=== PATIENT | female | born 1955 | race African-American/Black ===

== ENCOUNTER 2019-05-27 11:50 | Emergency (ER) | payer OTHER ==
[~2019-05-27] VITALS: Ht 170.2 cm; Wt 93.0 kg
[2019-05-27 12:57] VITALS: BP 155/76
== END 2019-05-27 13:04 | disposition home or self-care (01) ==
LOC: ER 12:03
DX: R42 Dizziness and giddiness (principal); F41.9 Anxiety disorder, unspecified; I10 Essential (primary) hypertension
CPT/HCPCS: 93005

== ENCOUNTER 2025-07-17 09:00 | Emergency (ER) | payer OTHER ==
[~2025-07-17] VITALS: Ht 167.6 cm; Wt 119.1 kg
[2025-07-17 10:00] LABS: Hematocrit 33.2 % (36.0-46.0); Hemoglobin 11.3 g/dL (12.2-16.2); Mean Corpuscular Hemoglobin 33.1 pg (28.0-32.0); Mean Corpuscular Volume 97.8 fL (80.0-100.0); Nucleated Red Blood Cells % 0.2 %
--- NOTE | 2025-07-17 10:00 | DVH ---
EXAM: CT HEAD WITHOUT CONTRAST INDICATION: HEAD PAIN TECHNIQUE: CT of the head without intravenous contrast. Radiation Dose : 1. Head: CT Dose: CTDI volume is 55.4 mGy. Dose-length product is 1091.72 mGy*cm The dose indicators for CT are the volume Computed Tomography (CT) Dose Index (CTDIvol) and the Dose Length Product (DLP), and are measured in units of mGy and mGy-cm, respectively. These indicators are not patient dose, but values generated from the CT scanner acquisition factors. The report includes radiation exposure data for exposures received during this examination. COMPARISON: None FINDINGS: There is no evidence of acute intracranial hemorrhage, extra-axial collection, mass effect, midline s hift, herniation or hydrocephalus. The ventricles, sulci and cisterns are age appropriate. Hypoattenuation in the right posterior temporal lobe /parietal lobe. Patchy periventricular and subcortical white matter hypoattenuation is nonspecific but may be related to small vessel ischemic disease. The visualized paranasal sinuses and mastoid air cells are clear. The surrounding soft tissues and osseous structures are unremarkable. IMPRESSION: Hypoattenuation in the posterior right temporal lobe / parietal lobe. This may represent a subacute i nfarct. Clinical correlation advised. MRI can be obtained to further evaluate if clinically indicat ed. Critical Result: Stroke Alert Findings discussed with Dr. Murillo, at 07/17/2025 09:57 AM, and acknowledged receipt and understandin g of the findings.
[2025-07-17 10:03] LABS: Potassium 4.4 mmol/L (3.5-5.1); Sodium 141 mmol/L (136-145)
[2025-07-17 10:04] LABS: Anion Gap 9 (5-15); Calcium 8.9 mg/dL (8.7-10.4); Carbon Dioxide 24 mmol/L (20-31)
[2025-07-17 10:09] LABS: BUN/Creatinine Ratio 12.9 (10.0-20.0); Blood Urea Nitrogen 15 mg/dL (9-23)
[2025-07-17 10:16] LABS: Chloride 108 mmol/L (98-107); Glucose 142 mg/dL (74-106)
--- NOTE | 2025-07-17 11:10 | ED.PDOC ---
History of Present Illness HPI Comments 70-YEAR-OLD FEMALE PRESENTS TO THE ER WITH SPOUSE AND PRIOR MEDICAL HISTORY OF HYPERTENSION AND THE CHIEF COMPLAINT OF HEADACHE. PATIENT REPORTS ON BEING ON THE PHONE LAST NIGHT AT 9:00 P.M., AND WHEN THE PATIENT GOT UP FROM SITTING DOWN, THE PATIENT'S LEFT EYE VISION TURNED BLACK AND THE RIGHT EYE HAD BLUR RINESS. STATED ON TRYING TO SLEEP IT OFF WHEN SHE WOKE UP THIS MORNING WITH HORRENDOUS HEADACHE . 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 Family History Family History: Reviewed,noncontributory to illness, Unknown Social History Smoker: Non-Smoker Alcohol: Denies ETOH Use Drugs: Denies Drug Use Lives In: Home Constitutional: denies: chills, diaphoresis, fatigue, fever, malaise, sweats, weakness, others EENTM: reports: blurred vision; denies: double vision, ear bleeding, ear discharge, ear drainage, ear pain, ear ringing, eye pain, eye redness, hearing loss, mouth pain, mouth swelling, nasal discharge, nose bleeding, nose congestion, nose pain, photophobia, tearing, throat pain, throat swelling, voice changes, others Respiratory: denies: cough, hemoptysis, orthopnea, SOB at rest, shortness of breath, SOB with excertion, stridor, wheezing, others Cardiovascular: denies: chest pain, dizzy spells, diaphoresis, Dyspnea on exertion, edema, irregular heart beat, left arm pain, lightheadedness, palpitations, PND, syncope, others Gastrointestinal: denies: abdomen distended, abdominal pain, blood streaked bowels, constipated, diarrhea, dysphagia, difficulty swallowing, hematemesis, melena, nausea, poor appetite, poor fluid intake, rectal bleeding, rectal pain, vomiting, others Genitourinary: denies: abnormal vagina bleeding, burning, dyspareunia, dysuria, flank pain, frequency, hematuria, incontinence, pain, , vagina discharge, urgency, others Neurological: reports: headache; denies: dizziness, fainting, left sided numbness, left sided weakness, numbness, paresthesia, pre-existing deficit, right sided numbness, right sided weakness, seizure, speech problems, tingling, tremors, weakness, others Musculoskeletal: denies: back pain, gout, joint pain, joint swelling, muscle pain, muscle stiffness, neck pain, others Integumetry: denies: bruises, change in color, change in hair/nails, dryness, laceration, lesions, lumps, rash, wounds, others Allergic/Immunocompromised: denies: Difficulty Healing, Frequent Infections, Hives, Itching, others Hematologic/Lymphatic: denies: anemia, blood clots, easy bleeding, easy bruising, swollen glands, others Endocrine: denies: excessive hunger, excessive sweating, excessive thirst, excessive urination, flushing, intolerance to cold, intolerance to heat, unexplained weight gain, unexplained weight loss, others Psychiatric: denies: anxiety, bipolar disorder, depression, hopeless, panic disorder, schizophrenia, sleepless, suicidal, others All Other Systems: Reviewed and Negative Physical Exam General Appearance: No Apparent Distress, Normal HEENT: Normal ENT Inspection, Pharynx Normal, TMs Normal Neck: Full Range of Motion, Non-Tender, Normal, Normal Inspection Respiratory: Chest Non-Tender, Lungs Clear, No Accessory Muscle Use, No Respiratory Distress, Normal Breath Sounds Cardiovascular: No Edema, No JVD, No Murmur, No Gallop, Normal Peripheral Pulses, Regular Rate/Rhythm Breast Exam: Deferred Gastrointestinal: No Organomegaly, Non Tender, No Pulsatile Mass, Normal Bowel Sounds, Soft Genitalia: Deferred Pelvic: Deferred Rectal: Deferred Extremities: No calf tenderness, Normal capillary refill, Normal inspection, Normal range of motion, Non-tender, No pedal edema Musculoskeletal : Apperance: Normal Neurologic: Alert, filling operator II-XII nml as Tested, No Motor Deficits, Normal Affect, Normal Mood, No Sensory Deficits Cerebellar Function: Normal Reflexes: Normal Skin: Dry, Normal Color, Warm Lymphatic: No Adenopathy Was a procedure done? Was a procedure done?: No Differential Dx Considerations may include: cva, migraine X-Ray, Labs, Meds, VS Vital Signs Date Time Temp Pulse Resp B/P (MAP) Pulse Ox O2 Delivery O2 Flow Rate FiO2 9/23/25 12:43 74 19 96 Room Air* 0 21 07/17/25 12:29 71 19 96 Room Air 07/17/25 12:29 98.0 71 79 139/71 (93) 96 98.0 07/17/25 09:02 99.1 77 18 110/53 97 99.1 Lab Test 07/17/25 13:01 07/17/25 10:36 07/17/25 09:43 Range/Units Troponin I High Sensitivity Pending 10 10 </=34 ng/L White Blood Count 4.2 L 4.4-10.8 10^3/uL Red Blood Count 3.40 L 4.0-5.20 10^6/uL Hemoglobin 11.3 L 12.2-16.2 g/dL Hematocrit 33.2 L 36.0-46.0 % Mean Corpuscular Volume 97.8 80.0-100.0 fL Mean Corpuscular Hemoglobin 33.1 H 28.0-32.0 pg Mean Corpuscular Hemoglobin Concent 33.9 32.0-36.0 g/dL Red Cell Distribution Width 14.3 11.8-14.3 % Platelet Count 194 140-450 10^3/uL Mean Platelet Volume 8.8 6.9-10.8 fL Neutrophils (%) (Auto) 47.9 37.0-80.0 % Lymphocytes (%) (Auto) 29.7 10.0-50.0 % Monocytes (%) (Auto) 13.9 H 0.0-12.0 % Eosinophils (%) (Auto) 8.1 H 0.0-7.0 % Basophils (%) (Auto) 0.4 0.0-2.0 % Neutrophils # (Auto) 2.0 1.6-8.6 10 ^3/uL Lymphocytes # (Auto) 1.2 0.4-5.4 10 ^3/uL Monocytes # (Auto) 0.6 0-1.3 10 ^3/uL Eosinophils # (Auto) 0.3 0-0.8 10 ^3/uL Basophils # (Auto) 0 0-0.2 10 ^3/uL Nucleated Red Blood Cells 0.2 % Sodium Level 141 136-145 mmol/L Potassium Level 4.4 3.5-5.1 mmol/L Chloride Level 108 H 98-107 mmol/L Carbon Dioxide Level 24 20-31 mmol/L Anion Gap 9 5-15 Blood Urea Nitrogen 15 9-23 mg/dL Creatinine 1.16 H 0.550-1.02 mg/dL Glomerular Filtration Rate Calc 50 >90 mL/min BUN/Creatinine Ratio 12.9 10.0-20.0 Serum Glucose 142 H 74-106 mg/dL Calcium Level 8.9 8.7-10.4 mg/dL Current Medications Medications (Trade) Dose Ordered Sig/Layr Route Start Time Stop Time Status Last Admin Acetaminophen (Tylenol Tablet) 650 mg ONCE ONCE PO 07/17/25 11:30 07/17/25 11:36 DC 07/17/25 12:10 Aspirin 324 mg ONCE ONCE PO 07/17/25 11:30 07/17/25 11:36 DC 07/17/25 12:10 Time of 1ST Reevaluation: 11:30 Reevaluation 1ST: Unchanged Patient Education/Counseling: Diagnosis, Treatment, Prognosis Family Education/Counseling: No Family Present SEPSIS Sepsis Screen Date sepsis recognized/suspect: Jul 17, 2025 Time Sepsis recognized/suspect: 901 Recent Procedure: No On Antibiotic Therapy: No Respiratory Rate >20: No Heart Rate >90: No Temp<36 C (96.8 F) or >38.3 C: No SBP <90 or MAP <65 mmHG: No New Acute Mental Status Change: No Is the patient on CPAP, BIPAP,: No Physician Orders Head Without Contrast (07/17/25 09:09) Urinalysis (07/17/25 09:30) Troponin-I Hs (07/17/25 12:30) Electrocardigram (07/17/25 11:16) Imaging Transfer Request (07/17/25 11:36) Angio Head/Neck (07/17/25 12:50) Vital Signs Date Time Temp Pulse Resp B/P (MAP) Pulse Ox O2 Delivery O2 Flow Rate FiO2 07/17/25 12:43 74 19 96 Room Air* 0 21 07/17/25 12:29 71 19 96 Room Air 07/17/25 12:29 98.0 71 79 139/71 (93) 96 98.0 07/17/25 09:02 99.1 77 18 110/53 97 99.1 Laboratory Tests Test 07/17/25 09:43 White Blood Count 4.2 10^3/uL (4.4-10.8) L Medications Medications Dose Ordered Sig/Lary Route Start Time Stop Time Status Last Admin Dose Admin Acetaminophen 650 mg ONCE ONCE PO 07/17/25 11:30 07/17/25 11:36 DC 07/17/25 12:10 Aspirin 324 mg ONCE ONCE PO 07/17/25 11:30 07/17/25 11:36 DC 07/17/25 12:10 Departure 1 Departure Time of Disposition: 13:23 ([facility] Authorization: [id number] with a CVA.Patient being emergently transferred to [facility].) Impression: Primary Impression: CVA (cerebral vascular accident) Qualified Codes: I63.9 - Cerebral infarction, unspecified Additional Impression: Blurry vision Disposition: 02 SHORT TERM [facility]OSPITAL Condition: Critical Critical Care Note Critical Care Time?: Yes Critical care comment: CVA Authorized and Performed by: Aguila Murillo MD Total critical care time: Approximately 38 minutes Due to a high probability of clinically significant, life threatening deterioration, the patient required my highest level of preparedness to intervene emergently and I personally spent this critical care time directly and personally managing the patient. This critical care time included obtaining a history; examining the patient; pulse oximetry; ordering and review of studies; arranging urgent treatment with development of a management plan; evaluation of patient's response to treatment; frequent reassessment; and, discussions with other providers. This critical care time was performed to assess and manage the high probability of imminent, life-threatening deterioration that could result in multi-organ failure. It was exclusive of separately billable procedures and treating other patients and teaching time. Please see my other sections and the rest of the note for further information on patient assessment and treatment. Stability Stability form required: No I personally scribed for AGUILA MURILLO MD ([email or web address]) on 07/17/25 at 11:10. Electronically submitted by Vick Stephenson ([email or web address]). AGUILA MURILLO MD Jul 17, 2025 11:10
[2025-07-17] MEDS: ACETAMINOPHEN 325 MG TAB PO ONE (12:10)
[2025-07-17 12:43] VITALS: PULSE 74; RESP 19; O2SAT 96
[2025-07-17] MEDS: IOHEXOL 350 MG/ML 100ML IJ ONE (13:20)
--- NOTE | 2025-07-17 14:10 | DVH ---
EXAM: CT ANGIO HEAD/NECK DATE OF SERVICE: 07/17/2025 01:13 PM ORDERING PHYSICIAN: AGUILA EL REASON FOR EXAM: better stroke evaluation TECHNIQUE: CTA of the brain and neck was performed after the administration of contrast . Axial imag es of the head and neck are obtained. Coronal and sagittal images were then reformatted for review. M IP reformats were obtained and reviewed. COMPARISON: CT head from today FINDINGS: FINDINGS: The right common carotid artery demonstrates no high-grade stenosis. There is mild calcification of t he right carotid bulb. Right internal carotid artery demonstrates no high-grade stenosis. Right middle cerebral artery demonstrates no high-grade stenosis. The right anterior cerebral artery demonstrates no high-grade stenosis. The left common carotid artery demonstrates no high-grade stenosis. There is mild calcification of th e left carotid bulb. Left internal carotid artery demonstrates no high-grade stenosis. The left middle cerebral artery demonstrates no high-grade stenosis. The left anterior cerebral artery demonstrates no high-grade stenosis. The right vertebral artery demonstrates no high-grade stenosis. The left vertebral artery demonstrates no high-grade stenosis. Basilar artery demonstrates no high-grade stenosis. The bilateral posterior cerebral arteries demonstrate no high-grade stenosis. Hypoattenuation within the right occipital lobe. Moderate to advanced cervical degenerative disc disease IMPRESSION: No large vessel high-grade stenosis. Hypoattenuation within the right occipital lobe likely subacute infarction. Recommend MRI brain with and without contrast to confirm and exclude any type of underlying lesion
[2025-07-17 16:22] LABS: Urine Protein, UAD Negative (Negative)
[2025-07-17 17:30] VITALS: BP 130/74; PULSE 89; RESP 21; TEMP 98; O2SAT 97
== END 2025-07-17 17:47 | disposition short-term general hospital (02) ==
LOC: ER 09:00
DX: I63.9 Cerebral infarction, unspecified (principal); I10 Essential (primary) hypertension; H53.8 Other visual disturbances; Z79.899 Other long term (current) drug therapy
CPT/HCPCS: 36415; 70450; 70496; 70498; 80048; 81001; 84484; 85025; 99291; Q9967

== ENCOUNTER 2025-09-13 08:07 | Emergency (ER) | payer OTHER ==
[~2025-09-13] VITALS: Ht 165.1 cm; Wt 117.3 kg
[2025-09-13] VITALS (10 sets, daily range): BP systolic 132–162; BP diastolic 53–91; PULSE 73–97; RESP 17–18; TEMP 98.4–98.5; O2SAT 98
--- NOTE | 2025-09-13 08:50 | ED.PDOC ---
History of Present Illness HPI Comments This is a 70 year female presenting to the ED with chief complaint of abnormal labs. Patient reports that she has been experiencing fatigue with associated SOB with exertion and dizziness for the past few days. Patient relays she had blood work done at [facility] yesterday, receiving a call back today telling her that her Hgb was at 6 and she needed to come into the ED for further evaluation. Patient notes that she had some blood in the toilet recently and has history of Diverticulitis and CVA currently on Pradaxa. Patient denies any headache, chest pain, N/V, or syncope. 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 Family History Family History: Reviewed,noncontributory to illness, Unknown Social History Smoker: Non-Smoker Alcohol: Denies ETOH Use Drugs: Denies Drug Use Lives In: Home Constitutional: reports: fatigue; denies: chills, diaphoresis, fever, malaise, sweats, weakness, others EENTM: denies: blurred vision, double vision, ear bleeding, ear discharge, ear drainage, ear pain, ear ringing, eye pain, eye redness, hearing loss, mouth pain, mouth swelling, nasal discharge, nose bleeding, nose congestion, nose pain, photophobia, tearing, throat pain, throat swelling, voice changes, others Respiratory: reports: SOB with excertion; denies: cough, hemoptysis, orthopnea, SOB at rest, shortness of breath, stridor, wheezing, others Cardiovascular: denies: chest pain, dizzy spells, diaphoresis, Dyspnea on exertion, edema, irregular heart beat, left arm pain, lightheadedness, palpitations, PND, syncope, others Gastrointestinal: denies: abdomen distended, abdominal pain, blood streaked bowels, constipated, diarrhea, dysphagia, difficulty swallowing, hematemesis, melena, nausea, poor appetite, poor fluid intake, rectal bleeding, rectal pain, vomiting, others Genitourinary: denies: abnormal vagina bleeding, burning, dyspareunia, dysuria, flank pain, frequency, hematuria, incontinence, pain, , vagina discharge, urgency, others Neurological: reports: dizziness; denies: fainting, headache, left sided numbness, left sided weakness, numbness, paresthesia, pre-existing deficit, right sided numbness, right sided weakness, seizure, speech problems, tingling, tremors, weakness, others Musculoskeletal: denies: back pain, gout, joint pain, joint swelling, muscle pain, muscle stiffness, neck pain, others Integumetry: denies: bruises, change in color, change in hair/nails, dryness, laceration, lesions, lumps, rash, wounds, others Allergic/Immunocompromised: denies: Difficulty Healing, Frequent Infections, Hives, Itching, others Hematologic/Lymphatic: denies: anemia, blood clots, easy bleeding, easy bruising, swollen glands, others Endocrine: denies: excessive hunger, excessive sweating, excessive thirst, excessive urination, flushing, intolerance to cold, intolerance to heat, unexplained weight gain, unexplained weight loss, others Psychiatric: denies: anxiety, bipolar disorder, depression, hopeless, panic disorder, schizophrenia, sleepless, suicidal, others All Other Systems: Reviewed and Negative Physical Exam General Appearance: No Apparent Distress, Normal HEENT: Normal ENT Inspection, Pharynx Normal, TMs Normal Neck: Full Range of Motion, Non-Tender, Normal, Normal Inspection Respiratory: Chest Non-Tender, Lungs Clear, No Accessory Muscle Use, No Respiratory Distress, Normal Breath Sounds Cardiovascular: No Edema, No JVD, No Murmur, No Gallop, Normal Peripheral Pulses, Regular Rate/Rhythm Breast Exam: Deferred Gastrointestinal: No Organomegaly, Non Tender, No Pulsatile Mass, Normal Bowel Sounds, Soft Genitalia: Deferred Pelvic: Deferred Rectal: Deferred Extremities: No calf tenderness, Normal capillary refill, Normal inspection, Normal range of motion, Non-tender, No pedal edema Musculoskeletal : Apperance: Normal Neurologic: Alert, spool tender II-XII nml as Tested, No Motor Deficits, Normal Affect, Normal Mood, No Sensory Deficits Cerebellar Function: Normal Reflexes: Normal Skin: Dry, Normal Color, Warm Lymphatic: No Adenopathy Was a procedure done? Was a procedure done?: No Differential Dx Considerations may include: Anemia, Diverticulitis X-Ray, Labs, Meds, VS Vital Signs Date Time Temp Pulse Resp B/P (MAP) Pulse Ox O2 Delivery O2 Flow Rate FiO2 09/14/25 02:43 98.6 91 13 130/57 (81) 97 98.6 09/14/25 00:00 93 21 144/71 (95) 96 09/13/25 22:27 117 146/67 09/13/25 22:00 94 20 141/58 (85) 95 09/13/25 21:27 85 168/88 09/13/25 19:30 Room Air* 0 21 09/13/25 19:30 98.7 101 16 159/91 (113) 97 98.7 09/13/25 19:00 95 17 150/59 (89) 98 09/13/25 18:45 98.5 97 17 159/91 98.5 09/13/25 18:00 96 17 149/58 (88) 98 09/13/25 18:00 98.5 96 17 149/58 98.5 09/13/25 17:00 98.5 88 17 132/57 98.5 09/13/25 17:00 88 17 132/57 (82) 98 09/13/25 16:45 89 17 140/55 (83) 98 09/13/25 16:45 98.5 89 17 140/55 98.5 09/13/25 16:30 98.5 73 17 142/73 98.5 09/13/25 16:30 73 17 142/73 (96) 98 09/13/25 16:15 98.5 77 17 162/70 98.5 09/13/25 16:15 77 17 162/70 (100) 98 09/13/25 16:00 98.5 93 17 143/88 98.5 09/13/25 16:00 93 17 143/88 (106) 98 09/13/25 15:45 90 17 133/86 (102) 98 09/13/25 15:45 98.5 85 17 148/55 98.5 09/13/25 15:30 98.4 83 17 144/53 98.4 09/13/25 15:00 88 17 143/83 (103) 98 09/13/25 14:00 91 17 133/86 (102) 98 09/13/25 12:00 94 17 139/56 (83) 98 09/13/25 11:06 98 Room Air* 0 21 09/13/25 11:01 92 18 98 Room Air* 0 21 09/13/25 10:00 98.3 92 17 141/65 (90) 98 98.3 09/13/25 08:17 108 09/13/25 08:11 97.8 135 18 144/74 98 97.8 Lab Test 09/13/25 19:45 09/13/25 12:18 09/13/25 09:01 Range/Units Hemoglobin 8.0 #L 6.9 *L 12.2-16.2 g/dL Hematocrit 24.8 #L 21.4 L 36.0-46.0 % Urine Color Light-yellow Yellow Urine Clarity Clear Clear Urine pH 5.5 5.0-9.0 Urine Specific [place] 1.013 1.001-1.035 Urine Protein Negative Negative Urine Ketones Negative Negative Urine Blood Trace H Negative /uL Urine Nitrite Negative Negative Urine Bilirubin Negative Negative Urine Urobilinogen 2 H Negative mg/dL Urine Leukocyte Esterase Negative Negative /uL Urine RBC None seen 0 - 4 /hpf Urine Microscopic WBC 1 0-5 /HPF Urine Squamous Epithelial Cells Few <5 /hpf Urine Amorphous Crystals Few None Seen /hpf Urine Bacteria Many H None Seen /hpf Urine Mucus Few None Seen Urine Glucose Normal Normal mg/dL White Blood Count 5.2 4.4-10.8 10^3/uL Red Blood Count 2.35 L 4.0-5.20 10^6/uL Mean Corpuscular Volume 90.9 80.0-100.0 fL Mean Corpuscular Hemoglobin 29.2 28.0-32.0 pg Mean Corpuscular Hemoglobin Concent 32.2 32.0-36.0 g/dL Red Cell Distribution Width 14.4 H 11.8-14.3 % Platelet Count 256 140-450 10^3/uL Mean Platelet Volume 8.4 6.9-10.8 fL Neutrophils (%) (Auto) 59.4 37.0-80.0 % Lymphocytes (%) (Auto) 23.3 10.0-50.0 % Monocytes (%) (Auto) 11.8 0.0-12.0 % Eosinophils (%) (Auto) 5.0 0.0-7.0 % Basophils (%) (Auto) 0.5 0.0-2.0 % Neutrophils # (Auto) 3.1 1.6-8.6 10 ^3/uL Lymphocytes # (Auto) 1.2 0.4-5.4 10 ^3/uL Monocytes # (Auto) 0.6 0-1.3 10 ^3/uL Eosinophils # (Auto) 0.3 0-0.8 10 ^3/uL Basophils # (Auto) 0 0-0.2 10 ^3/uL Nucleated Red Blood Cells 0.5 % Prothrombin Time 13.5 H 9.3-11.8 sec Prothrombin Time INR 1.31 H 0.9-1.15 Activated Partial Thromboplast Time 39.6 H 24.5-34.5 SEC Sodium Level 142 136-145 mmol/L Potassium Level 3.9 3.5-5.1 mmol/L Chloride Level 108 H 98-107 mmol/L Carbon Dioxide Level 23 20-31 mmol/L Anion Gap 11 5-15 Blood Urea Nitrogen 11 9-23 mg/dL Creatinine 0.90 0.550-1.02 mg/dL Glomerular Filtration Rate Calc 68 >90 mL/min BUN/Creatinine Ratio 12.2 10.0-20.0 Serum Glucose 129 H 74-106 mg/dL Calcium Level 8.9 8.7-10.4 mg/dL Time of 1ST Reevaluation: 09:45 Reevaluation 1ST: Unchanged Patient Education/Counseling: Diagnosis, Treatment Family Education/Counseling: No Family Present SEPSIS Sepsis Screen Date sepsis recognized/suspect: Sep 13, 2025 Time Sepsis recognized/suspect: 810 Recent Procedure: No On Antibiotic Therapy: No Respiratory Rate >20: No Heart Rate >90: Yes Temp<36 C (96.8 F) or >38.3 C: No SBP <90 or MAP <65 mmHG: No New Acute Mental Status Change: No Is the patient on CPAP, BIPAP,: No Physician Orders Imaging Transfer Request (09/13/25 14:14) Electrocardigram (09/14/25 10:08) Vital Signs Date Time Temp Pulse Resp B/P (MAP) Pulse Ox O2 Delivery O2 Flow Rate FiO2 09/14/25 02:43 98.6 91 13 130/57 (81) 97 98.6 09/14/25 00:00 93 21 144/71 (95) 96 09/13/25 22:27 117 146/67 09/13/25 22:00 94 20 141/58 (85) 95 09/13/25 21:27 85 168/88 09/13/25 19:30 Room Air* 0 21 09/13/25 19:30 98.7 101 16 159/91 (113) 97 98.7 09/13/25 19:00 95 17 150/59 (89) 98 09/13/25 18:45 98.5 97 17 159/91 98.5 09/13/25 18:00 96 17 149/58 (88) 98 09/13/25 18:00 98.5 96 17 149/58 98.5 09/13/25 17:00 98.5 88 17 132/57 98.5 09/13/25 17:00 88 17 132/57 (82) 98 09/13/25 16:45 89 17 140/55 (83) 98 09/13/25 16:45 98.5 89 17 140/55 98.5 09/13/25 16:30 98.5 73 17 142/73 98.5 09/13/25 16:30 73 17 142/73 (96) 98 09/13/25 16:15 98.5 77 17 162/70 98.5 09/13/25 16:15 77 17 162/70 (100) 98 09/13/25 16:00 98.5 93 17 143/88 98.5 09/13/25 16:00 93 17 143/88 (106) 98 09/13/25 15:45 90 17 133/86 (102) 98 09/13/25 15:45 98.5 85 17 148/55 98.5 09/13/25 15:30 98.4 83 17 144/53 98.4 09/13/25 15:00 88 17 143/83 (103) 98 09/13/25 14:00 91 17 133/86 (102) 98 09/13/25 12:00 94 17 139/56 (83) 98 09/13/25 11:06 98 Room Air* 0 21 09/13/25 11:01 92 18 98 Room Air* 0 21 09/13/25 10:00 98.3 92 17 141/65 (90) 98 98.3 09/13/25 08:17 108 09/13/25 08:11 97.8 135 18 144/74 98 97.8 Laboratory Tests Test 09/13/25 09:01 White Blood Count 5.2 10^3/uL (4.4-10.8) Departure 1 Departure Time of Disposition: 10:00 ([facility] Authorization: [id number]) Impression: Primary Impression: Symptomatic anemia Additional Impression: Blood per rectum Disposition: ADMITTED INPATIENT Admit to: Med Surg Condition: Guarded Critical Care Note Critical Care Time?: No Stability Stability form required: No Heart Score Heart Score: Heart Score Response (Comments) Value History N/A 0 EKG N/A 0 Age N/A 0 Risk Factors N/A 0 Troponin N/A 0 Total 0 I personally scribed for AGUILA EL MD ([email or web address]) on 09/13/25 at 08:50. Electronically submitted by Maciel Restrepo ([email or web address]). AGUILA EL MD Sep 13, 2025 08:50
[2025-09-13 09:12] LABS: Hematocrit 21.4 % (36.0-46.0); Mean Corpuscular Hemoglobin 29.2 pg (28.0-32.0); Mean Corpuscular Volume 90.9 fL (80.0-100.0); Nucleated Red Blood Cells % 0.5 %
[2025-09-13 09:16] LABS: Hemoglobin 6.9 g/dL (12.2-16.2)
[2025-09-13 09:28] LABS: INR 1.31 (0.9-1.15); Partial Thromboplastin Time 39.6 SEC (24.5-34.5); Prothrombin Time 13.5 sec (9.3-11.8)
[2025-09-13 10:09] LABS: Potassium 3.9 mmol/L (3.5-5.1); Sodium 142 mmol/L (136-145)
[2025-09-13 10:10] LABS: Anion Gap 11 (5-15); Carbon Dioxide 23 mmol/L (20-31)
[2025-09-13 10:11] LABS: Calcium 8.9 mg/dL (8.7-10.4); Chloride 108 mmol/L (98-107)
[2025-09-13 10:16] LABS: BUN/Creatinine Ratio 12.2 (10.0-20.0); Blood Urea Nitrogen 11 mg/dL (9-23)
[2025-09-13 10:19] LABS: Glucose 129 mg/dL (74-106)
[2025-09-13] MEDS: PANTOPRAZOLE 40 MG/10 ML VIAL INJ IV ONE (10:54)
[2025-09-13] MEDS: SODIUM CHLORIDE 0.9% 1,000 ML IV ONE (10:54)
[2025-09-13 15:52] LABS: Urine Amorphous Crystal FEW /hpf (None Seen); Urine Protein, UAD Negative (Negative)
[2025-09-13 20:06] LABS: Hematocrit 24.8 % (36.0-46.0); Hemoglobin 8.0 g/dL (12.2-16.2)
[2025-09-13] MEDS: CARVEDILOL 12.5 MG TAB PO ONE (21:27)
[2025-09-14 02:43] VITALS: BP 130/57; PULSE 91; RESP 13; TEMP 98.6; O2SAT 97
--- NOTE | 2025-09-14 10:12 | ECG ---
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
== END 2025-09-13 13:35 | disposition short-term general hospital (02) ==
LOC: ER 08:07
DX: D64.9 Anemia, unspecified (principal); K62.5 Hemorrhage of anus and rectum; R42 Dizziness and giddiness; R06.02 Shortness of breath; I10 Essential (primary) hypertension; Z86.73 Personal history of transient ischemic attack (TIA), and cerebral infarction without residual deficits; Z79.01 Long term (current) use of anticoagulants
CPT/HCPCS: 36415; 36430; 80048; 81001; 85014; 85018; 85025; 85610; 85730; 86850; 86900; 86901; 86920; 96361; 96374; 99285; J2470; J7030; P9016